=== PATIENT | female | born 1975 | race Caucasian/White ===

== ENCOUNTER → 2018-02-19 | Outpatient (CLI) | payer OTHER ==
[2016-11-06 19:02] VITALS: BP 124/82
--- NOTE | 2018-02-19 11:45 | RAD ---
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 The glenohumeral articulation is normal in its appearance. No acute cor tical disruption or dislocation can be identified. The visualized portions of the scapula are unrema rkable. In addition, the visualized portions of the thorax appear normal. IMPRESSION: Mild DJD without acute bony radiographic abnormality. Reported By:
== END ==
LOC: RAD 11:17
PROVIDERS: ATTEND Internal Medicine
DX: M25.512 Pain in left shoulder (principal); M19.012 Primary osteoarthritis, left shoulder
CPT/HCPCS: 73030